=== PATIENT | male | born 1965 | race Caucasian/White ===

== ENCOUNTER 2018-01-27 10:04 | Inpatient (IN) | payer MEDICAID ==
[~2018-01-27] VITALS: Ht 177.8 cm; Wt 80.0 kg
[2018-01-27] MEDS ORDERED: normal saline 1000ML IV soln IVB ONE ×2 (10:25→13:05)
[2018-01-27] MEDS ORDERED: ondansetron/PF 4mg/2ml inj IV ONE (10:25)
[2018-01-27] MEDS ORDERED: LORazepam 2 mg/ml vial IV ONE ×2 (10:25→17:20)
[2018-01-27 11:15] LABS: BASOPHILS % (AUTO) 0.5 % (0-1); EOSINOPHILS # (AUTO) 0.1 X10'3 (0-0.9); EOSINOPHILS % (AUTO) 0.7 % (0-6); HEMATOCRIT 41.6 % (42.0-52.0); HEMOGLOBIN 13.9 g/dl (14.0-17.9); LYMPHOCYTES # (AUTO) 1.4 X10'3 (1.1-4.8); LYMPHOCYTES % (AUTO) 18.4 % (21-51); MEAN CORPUSCULAR HEMOGLOBIN 31.6 PG (27.0-31.0); MEAN CORPUSCULAR HGB CONC 33.4 % (33.0-36.5); MEAN CORPUSCULAR VOLUME 94.6 FL (78-98); MEAN PLATELET VOLUME 7.6 FL (7.4-10.4); MONOCYTES # (AUTO) 0.5 X10'3 (0-0.9); MONOCYTES % (AUTO) 5.8 % (2-12); NEUTROPHILS # (AUTO) 5.8 X10'3 (1.8-7.7); NEUTROPHILS % (AUTO) 74.6 % (42-75); PLATELET COUNT 353 X10'3 (140-440); RED BLOOD COUNT 4.39 X10'6 (4.70-6.10); RED CELL DISTRIBUTION WIDTH 16.4 % (11.5-14.5); WHITE BLOOD COUNT 7.8 X10'3 (4.5-11.0)
[2018-01-27 11:25] LABS: ALANINE AMINOTRANSFERASE 32 U/L (12-78); ALBUMIN 3.1 G/DL (3.4-5.0); ALBUMIN/GLOBULIN RATIO 0.8 (1.1-1.5); ALKALINE PHOSPHATASE 193 IU/L (46-116); ANION GAP 23 (8-16); ASPARTATE AMINO TRANSFERASE 47 U/L (10-37); BILIRUBIN,TOTAL 0.7 MG/DL (0.1-1.0); BLOOD UREA NITROGEN 10 MG/DL (7-18); BUN/CREATININE RATIO 10.1 (5.4-32.0); CALCIUM 9.6 MG/DL (8.5-10.1); CHLORIDE 95 MMOL/L (99-107); CREATININE 0.99 MG/DL (0.60-1.10); GLUCOSE 88 MG/DL (70-104); POTASSIUM 3.4 MMOL/L (3.5-5.1); SODIUM 137 MMOL/L (135-145); TOTAL CARBON DIOXIDE 19.2 MMOL/L (24-32); TOTAL PROTEIN 7.1 G/DL (6.4-8.2); eGFR 80 ML/MIN
[2018-01-27 11:34] LABS: ACETAMINOPHEN < 2.0 UG/ML (10-30); ETHANOL 0.222 GM/DL (0.0-0.010)
[2018-01-27] MEDS ORDERED: proCHLORperazine 10 MG/2 ml inj IV ONE (11:50)
[2018-01-27] MEDS ORDERED: pantoprazole 40 MG vial IV ONE (13:05)
[2018-01-27] MEDS ORDERED: LIDOcaine Viscous 15ml cup MM ONE (13:05)
[2018-01-27] MEDS ORDERED: sucralfate 1gm/10ml UD suspension PO ONE (13:05)
[2018-01-27] MEDS ORDERED: mag hydrox/Alum hydrox/simeth 30ml oral suspension PO ONE (13:05)
[2018-01-27] MEDS ORDERED: PANT-47 PO ×2 (14:26→23:50)
[2018-01-27] MEDS: gabapentin 300mg capsule PO SCH ×3 (14:36→21:34)
[2018-01-27] MEDS ORDERED: normal saline 1000ml 1,000 ML IV ONE (15:40)
[2018-01-27 15:57] LABS: CLARITY,URINE CLEAR (Clear); COLOR,URINE YELLOW (Yellow); GLUCOSE, URINE NEGATIVE (Neg); KETONES,URINE >=80 mg/dl (Neg); LEUKOCYTE ESTERASE ,URINE NEGATIVE (Neg); NITRITES, URINE NEGATIVE (Neg); OCCULT BLOOD,URINE TRACE-INTACT (Neg); PH,URINE 5.5 (4.8-8.0); PROTEIN,URINE TRACE mg/dl (Neg); UROBILINOGEN,URINE 0.2 E.U/dL (0.2-1.0)
[2018-01-27 15:58] LABS: UA COLLECTION TYPE CLN CATCH MIDSTREAM
[2018-01-27 16:03] LABS: MUCUS STRANDS MANY /LPF (Neg); SQUAMOUS EPITHELIAL CELL,UR FEW /LPF (FEW)
[2018-01-27 16:05] LABS: BACTERIA,URINE NONE SEEN /HPF (Neg); RBC,URINE 0-2 /HPF (0-2); TRANSITIONAL EPI CELLS,URINE FEW /HPF; WBC,URINE 0-4 /HPF (0-4)
[2018-01-27 16:12] LABS: URINE AMPHETAMINE SCREEN NEGATIVE (Neg); URINE BARBITUATE SCREEN NEGATIVE (Neg); URINE BENZODIAZEPINES SCREEN NEGATIVE (Neg); URINE CANNABINOID SCREEN POSITIVE (Neg); URINE COCAINE SCREEN NEGATIVE (Neg); URINE METHADONE SCREEN NEGATIVE (Neg); URINE OPIATE SCREEN NEGATIVE (Neg); URINE PHENCYCLIDINE SCREEN NEGATIVE (Neg)
[2018-01-27] MEDS: thiamine 100mg tablet PO SCH (19:18)
[2018-01-27] MEDS: LORazepam 1 MG tablet PO PRN ×2 (19:18→21:34)
[2018-01-28] MEDS: pantoprazole 40mg Tablet.DR PO SCH (09:39)
[2018-01-28] MEDS: gabapentin 300mg capsule PO SCH ×4 (09:39→20:42)
[2018-01-28] MEDS: thiamine 100mg tablet PO SCH (09:39)
[2018-01-28] MEDS: multivitamins, therapeutics tablet PO SCH (09:39)
[2018-01-28] MEDS: LORazepam 1 MG tablet PO PRN ×5 (09:39→22:42)
[2018-01-28] MEDS ORDERED: acetaminophen 325mg tablet PO ONE (21:40)
[2018-01-29] MEDS ORDERED: dextrose 50%-water 50ml dispensing syringe IV PRN
[2018-01-29] MEDS ORDERED: thiamine 100mg/ml 2ml inj. IV ONE
[2018-01-29] MEDS: LORazepam 2 mg/ml vial IV PRN ×13 (00:22→23:08)
[2018-01-29 02:19] LABS: BASOPHILS % (AUTO) 0.4 % (0-1); EOSINOPHILS # (AUTO) 0.1 X10'3 (0-0.9); EOSINOPHILS % (AUTO) 1.2 % (0-6); HEMATOCRIT 38.3 % (42.0-52.0); HEMOGLOBIN 12.9 g/dl (14.0-17.9); LYMPHOCYTES # (AUTO) 1.2 X10'3 (1.1-4.8); LYMPHOCYTES % (AUTO) 19.5 % (21-51); MEAN CORPUSCULAR HEMOGLOBIN 31.9 PG (27.0-31.0); MEAN CORPUSCULAR HGB CONC 33.5 % (33.0-36.5); MEAN CORPUSCULAR VOLUME 95.2 FL (78-98); MEAN PLATELET VOLUME 7.9 FL (7.4-10.4); MONOCYTES # (AUTO) 0.3 X10'3 (0-0.9); MONOCYTES % (AUTO) 5.3 % (2-12); NEUTROPHILS # (AUTO) 4.6 X10'3 (1.8-7.7); NEUTROPHILS % (AUTO) 73.6 % (42-75); PLATELET COUNT 197 X10'3 (140-440); RED BLOOD COUNT 4.03 X10'6 (4.70-6.10); RED CELL DISTRIBUTION WIDTH 15.8 % (11.5-14.5); WHITE BLOOD COUNT 6.3 X10'3 (4.5-11.0)
[2018-01-29 02:23] LABS: ALANINE AMINOTRANSFERASE 27 U/L (12-78); ALBUMIN 2.8 G/DL (3.4-5.0); ALBUMIN/GLOBULIN RATIO 0.7 (1.1-1.5); ALKALINE PHOSPHATASE 140 IU/L (46-116); ANION GAP 9 (8-16); ASPARTATE AMINO TRANSFERASE 36 U/L (10-37); BILIRUBIN,TOTAL 0.6 MG/DL (0.1-1.0); BLOOD UREA NITROGEN 11 MG/DL (7-18); BUN/CREATININE RATIO 11.8 (5.4-32.0); CALCIUM 8.7 MG/DL (8.5-10.1); CHLORIDE 102 MMOL/L (99-107); CREATININE 0.93 MG/DL (0.60-1.10); GLUCOSE 138 MG/DL (70-104); POTASSIUM 3.5 MMOL/L (3.5-5.1); SODIUM 137 MMOL/L (135-145); TOTAL CARBON DIOXIDE 26.3 MMOL/L (24-32); TOTAL PROTEIN 6.6 G/DL (6.4-8.2); eGFR 86 ML/MIN
[2018-01-29] MEDS ORDERED: potassium Cl 20 mEq SR tablet PO STA (02:25)
[2018-01-29] MEDS ORDERED: potassium Cl 40MEQ/NS 500ml 500 ML IV PRN ×2 (02:30)
[2018-01-29] MEDS ORDERED: haloperidol 5mg tablet PO PRN (02:30)
[2018-01-29] MEDS ORDERED: ondansetron/PF 4mg/2ml inj IV PRN (02:30)
[2018-01-29] MEDS ORDERED: acetaminophen 325mg tablet PO PRN (02:30)
[2018-01-29] MEDS ORDERED: LORazepam 2 mg/ml vial IV PRN ×3 (02:30→04:50)
[2018-01-29] MEDS ORDERED: haloperidol lactate 5mg/ml inj IM PRN ×2 (02:30)
[2018-01-29] MEDS ORDERED: magnesium hydroxide 30ml (MOM) UD suspension PO PRN (02:30)
[2018-01-29] MEDS ORDERED: potassium Cl 20 mEq SR tablet PO PRN ×2 (02:30)
[2018-01-29 02:51] LABS: BILIRUBIN,DIRECT 0.2 MG/DL (0-0.3); MAGNESIUM 1.6 MG/DL (1.5-2.4)
[2018-01-29] MEDS ORDERED: phenobarbital inj 260 MG in normal saline 100ml IV soln 98 ML IV STA (03:05)
[2018-01-29] MEDS: normal saline 1000ml 1,000 ML IV SCH ×3 (03:19→21:35)
[2018-01-29 03:27] LABS: HIV ANTIBODY 1&2 RAPID NON-REACTIVE (Neg)
[2018-01-29] MEDS ORDERED: phenobarbital inj 130 MG in normal saline 100ml IV soln 99 ML IV ONE ×2 (06:45→23:20)
[2018-01-29] MEDS: pantoprazole 40mg Tablet.DR PO SCH ×2 (07:30→08:25)
[2018-01-29] MEDS: multivitamins, therapeutics tablet PO SCH ×2 (08:00→08:24)
[2018-01-29] MEDS: thiamine 100mg tablet PO SCH ×2 (08:00→08:25)
[2018-01-29] MEDS: folic acid 1mg tablet PO SCH (08:25)
[2018-01-29] MEDS: gabapentin 300mg capsule PO SCH ×4 (08:25→21:00)
[2018-01-29] MEDS: haloperidol lactate 5mg/ml inj IM PRN ×3 (09:10→19:04)
[2018-01-29 10:07] LABS: MAGNESIUM 1.5 MG/DL (1.5-2.4); POTASSIUM 3.8 MMOL/L (3.5-5.1)
[2018-01-29] MEDS: cloNIDine 0.1 mg tablet PO SCH ×2 (13:49→21:00)
[2018-01-29 16:20] VITALS: BP 127/82
[2018-01-29] MEDS ORDERED: LORazepam 2 mg/ml vial IV ONE ×2 (19:15→19:30)
[2018-01-29] MEDS: phenobarbital inj 260 MG in normal saline 100ml IV soln 98 ML IV SCH (21:20)
[2018-01-29 23:00] VITALS: BP 111/75
[2018-01-30] MEDS: LORazepam 2 mg/ml vial IV PRN ×19 (00:35→23:57)
[2018-01-30] MEDS: haloperidol lactate 5mg/ml inj IM PRN ×5 (00:38→23:59)
[2018-01-30 03:00] VITALS: BP 113/78
[2018-01-30 05:38] LABS: BASOPHILS % (AUTO) 0.3 % (0-1); EOSINOPHILS # (AUTO) 0.2 X10'3 (0-0.9); EOSINOPHILS % (AUTO) 4.2 % (0-6); HEMATOCRIT 36.3 % (42.0-52.0); HEMOGLOBIN 12.3 g/dl (14.0-17.9); LYMPHOCYTES # (AUTO) 1.1 X10'3 (1.1-4.8); LYMPHOCYTES % (AUTO) 18.8 % (21-51); MEAN CORPUSCULAR HEMOGLOBIN 32.2 PG (27.0-31.0); MEAN CORPUSCULAR HGB CONC 33.8 % (33.0-36.5); MEAN CORPUSCULAR VOLUME 95.5 FL (78-98); MEAN PLATELET VOLUME 8.6 FL (7.4-10.4); MONOCYTES # (AUTO) 0.4 X10'3 (0-0.9); MONOCYTES % (AUTO) 7.6 % (2-12); NEUTROPHILS % (AUTO) 69.1 % (42-75); PLATELET COUNT 149 X10'3 (140-440); RED BLOOD COUNT 3.81 X10'6 (4.70-6.10); RED CELL DISTRIBUTION WIDTH 15.7 % (11.5-14.5); WHITE BLOOD COUNT 5.8 X10'3 (4.5-11.0)
[2018-01-30 05:56] LABS: ALBUMIN 2.6 G/DL (3.4-5.0); ANION GAP 8 (8-16); BLOOD UREA NITROGEN 5 MG/DL (7-18); BUN/CREATININE RATIO 7.4 (5.4-32.0); CALCIUM 8.6 MG/DL (8.5-10.1); CHLORIDE 102 MMOL/L (99-107); CREATININE 0.68 MG/DL (0.60-1.10); GLUCOSE 100 MG/DL (70-104); MAGNESIUM 1.6 MG/DL (1.5-2.4); PHOSPHORUS 1.8 MG/DL (2.3-4.5); POTASSIUM 3.9 MMOL/L (3.5-5.1); SODIUM 135 MMOL/L (135-145); TOTAL CARBON DIOXIDE 24.8 MMOL/L (24-32); eGFR > 90 ML/MIN
[2018-01-30] MEDS: phenobarbital inj 260 MG in normal saline 100ml IV soln 98 ML IV SCH ×2 (07:48→21:21)
[2018-01-30] MEDS: multivitamins, therapeutics tablet PO SCH (08:00)
[2018-01-30] MEDS: gabapentin 300mg capsule PO SCH ×4 (08:00→20:14)
[2018-01-30] MEDS: cloNIDine 0.1 mg tablet PO SCH ×3 (08:00→20:14)
[2018-01-30] MEDS: pantoprazole 40mg Tablet.DR PO SCH (08:00)
[2018-01-30] MEDS: thiamine 100mg tablet PO SCH (08:00)
[2018-01-30] MEDS: folic acid 1mg tablet PO SCH (08:00)
[2018-01-30] MEDS ORDERED: phenobarbital inj 260 MG in normal saline 100ml IV soln 98 ML IV SCH (08:00)
[2018-01-30] MEDS: normal saline 1000ml 1,000 ML IV SCH ×3 (08:26→20:02)
[2018-01-30 08:45] VITALS: BP 140/67
[2018-01-30 11:00] VITALS: BP 134/79
[2018-01-30 15:00] VITALS: BP 129/82
[2018-01-30 18:00] VITALS: BP 120/79
[2018-01-30 22:00] VITALS: BP 125/72
[2018-01-31] MEDS: LORazepam 2 mg/ml vial IV PRN ×4 (00:13→20:00)
[2018-01-31] MEDS ORDERED: LORazepam 1 MG tablet PO PRN (02:30)
[2018-01-31] MEDS ORDERED: LORazepam 2 mg/ml vial IV PRN (02:30)
[2018-01-31] MEDS: normal saline 1000ml 1,000 ML IV SCH (04:18)
[2018-01-31 05:16] LABS: BASOPHILS % (AUTO) 0.2 % (0-1); EOSINOPHILS # (AUTO) 0.3 X10'3 (0-0.9); EOSINOPHILS % (AUTO) 3.8 % (0-6); HEMATOCRIT 37.9 % (42.0-52.0); HEMOGLOBIN 12.9 g/dl (14.0-17.9); LYMPHOCYTES # (AUTO) 0.9 X10'3 (1.1-4.8); LYMPHOCYTES % (AUTO) 13.1 % (21-51); MEAN CORPUSCULAR HEMOGLOBIN 32.8 PG (27.0-31.0); MEAN CORPUSCULAR HGB CONC 34.2 % (33.0-36.5); MEAN PLATELET VOLUME 8.2 FL (7.4-10.4); MONOCYTES # (AUTO) 0.6 X10'3 (0-0.9); MONOCYTES % (AUTO) 8.9 % (2-12); PLATELET COUNT 210 X10'3 (140-440); RED BLOOD COUNT 3.95 X10'6 (4.70-6.10); RED CELL DISTRIBUTION WIDTH 15.4 % (11.5-14.5); WHITE BLOOD COUNT 6.8 X10'3 (4.5-11.0)
[2018-01-31 05:24] LABS: ALBUMIN 2.6 G/DL (3.4-5.0); ANION GAP 10 (8-16); BLOOD UREA NITROGEN 7 MG/DL (7-18); BUN/CREATININE RATIO 10.3 (5.4-32.0); CALCIUM 8.5 MG/DL (8.5-10.1); CHLORIDE 100 MMOL/L (99-107); CREATININE 0.68 MG/DL (0.60-1.10); GLUCOSE 89 MG/DL (70-104); MAGNESIUM 1.6 MG/DL (1.5-2.4); PHOSPHORUS 3.4 MG/DL (2.3-4.5); POTASSIUM 3.7 MMOL/L (3.5-5.1); SODIUM 135 MMOL/L (135-145); TOTAL CARBON DIOXIDE 25.1 MMOL/L (24-32); eGFR > 90 ML/MIN
[2018-01-31 06:00] VITALS: BP 129/78
[2018-01-31] MEDS: cloNIDine 0.1 mg tablet PO SCH ×3 (08:00→20:15)
[2018-01-31] MEDS: pantoprazole 40mg Tablet.DR PO SCH (08:00)
[2018-01-31] MEDS: thiamine 100mg tablet PO SCH (08:00)
[2018-01-31] MEDS: gabapentin 300mg capsule PO SCH (08:00)
[2018-01-31] MEDS: multivitamins, therapeutics tablet PO SCH (08:00)
[2018-01-31] MEDS: folic acid 1mg tablet PO SCH (08:00)
[2018-01-31] MEDS: phenobarbital inj 260 MG in normal saline 100ml IV soln 98 ML IV SCH (08:27)
[2018-01-31] MEDS: haloperidol lactate 5mg/ml inj IM PRN (08:38)
[2018-01-31 11:00] VITALS: BP 126/77
[2018-01-31] MEDS: dextrose 5%-1/2 normal saline 1,000 ML IV SCH ×2 (14:45→23:56)
[2018-01-31 15:00] VITALS: BP 132/78
[2018-01-31 18:00] VITALS: BP 166/84
[2018-01-31 23:30] VITALS: BP 125/75
[2018-02-01] MEDS: LORazepam 2 mg/ml vial IV PRN ×4 (00:05→23:48)
[2018-02-01 02:00] VITALS: BP 137/81
[2018-02-01 05:07] LABS: BASOPHILS % (AUTO) 0.5 % (0-1); EOSINOPHILS # (AUTO) 0.3 X10'3 (0-0.9); EOSINOPHILS % (AUTO) 4.9 % (0-6); HEMATOCRIT 37.5 % (42.0-52.0); HEMOGLOBIN 12.7 g/dl (14.0-17.9); LYMPHOCYTES # (AUTO) 1.1 X10'3 (1.1-4.8); LYMPHOCYTES % (AUTO) 18.9 % (21-51); MEAN CORPUSCULAR HEMOGLOBIN 32.4 PG (27.0-31.0); MEAN CORPUSCULAR HGB CONC 33.9 % (33.0-36.5); MEAN CORPUSCULAR VOLUME 95.8 FL (78-98); MEAN PLATELET VOLUME 7.9 FL (7.4-10.4); MONOCYTES # (AUTO) 0.6 X10'3 (0-0.9); MONOCYTES % (AUTO) 10.5 % (2-12); NEUTROPHILS # (AUTO) 3.7 X10'3 (1.8-7.7); NEUTROPHILS % (AUTO) 65.2 % (42-75); PLATELET COUNT 269 X10'3 (140-440); RED BLOOD COUNT 3.92 X10'6 (4.70-6.10); RED CELL DISTRIBUTION WIDTH 15.8 % (11.5-14.5); WHITE BLOOD COUNT 5.7 X10'3 (4.5-11.0)
[2018-02-01 05:33] LABS: ALBUMIN 2.3 G/DL (3.4-5.0); ANION GAP 11 (8-16); BLOOD UREA NITROGEN 8 MG/DL (7-18); BUN/CREATININE RATIO 11.4 (5.4-32.0); CALCIUM 8.5 MG/DL (8.5-10.1); CHLORIDE 101 MMOL/L (99-107); GLUCOSE 99 MG/DL (70-104); MAGNESIUM 1.7 MG/DL (1.5-2.4); PHOSPHORUS 3.5 MG/DL (2.3-4.5); POTASSIUM 3.3 MMOL/L (3.5-5.1); SODIUM 137 MMOL/L (135-145); TOTAL CARBON DIOXIDE 25.3 MMOL/L (24-32); eGFR > 90 ML/MIN
[2018-02-01 06:00] VITALS: BP 116/76
[2018-02-01] MEDS: cloNIDine 0.1 mg tablet PO SCH ×3 (08:00→20:38)
[2018-02-01] MEDS: pantoprazole 40mg Tablet.DR PO SCH (08:00)
[2018-02-01] MEDS: thiamine inj. 100 MG, magnesium sulf injection 2 GM, MVI, adult No.4 with vit. K 10 ML ... IV SCH ×4 (09:46)
[2018-02-01 11:00] VITALS: BP 116/76
[2018-02-01] MEDS ORDERED: potassium Cl 20 mEq SR tablet PO PRN ×2 (11:10)
[2018-02-01] MEDS ORDERED: potassium Cl 40MEQ/NS 500ml 500 ML IV PRN ×2 (11:10)
[2018-02-01 15:00] VITALS: BP 117/76
[2018-02-01] MEDS: acetaminophen 325mg tablet PO PRN (16:28)
[2018-02-01 18:00] VITALS: BP 107/64
[2018-02-01] MEDS: dextrose 5%-1/2 normal saline 1,000 ML IV SCH (19:45)
[2018-02-01 22:00] VITALS: BP 120/88
[2018-02-02] MEDS ORDERED: haloperidol lactate 5mg/ml inj IM PRN (00:40)
[2018-02-02] MEDS ORDERED: LORazepam 2 mg/ml vial IV PRN ×3 (00:40→02:30)
[2018-02-02 02:00] VITALS: BP 126/73
[2018-02-02] MEDS ORDERED: LORazepam 1 MG tablet PO PRN (02:30)
[2018-02-02 05:04] LABS: BASOPHILS # (AUTO) 0.1 X10'3 (0-0.2); BASOPHILS % (AUTO) 1.1 % (0-1); EOSINOPHILS # (AUTO) 0.3 X10'3 (0-0.9); EOSINOPHILS % (AUTO) 4.6 % (0-6); HEMATOCRIT 37.2 % (42.0-52.0); HEMOGLOBIN 12.5 g/dl (14.0-17.9); LYMPHOCYTES # (AUTO) 1.4 X10'3 (1.1-4.8); LYMPHOCYTES % (AUTO) 23.1 % (21-51); MEAN CORPUSCULAR HEMOGLOBIN 32.2 PG (27.0-31.0); MEAN CORPUSCULAR HGB CONC 33.5 % (33.0-36.5); MEAN CORPUSCULAR VOLUME 96.2 FL (78-98); MONOCYTES # (AUTO) 0.7 X10'3 (0-0.9); MONOCYTES % (AUTO) 11.4 % (2-12); NEUTROPHILS # (AUTO) 3.8 X10'3 (1.8-7.7); NEUTROPHILS % (AUTO) 59.8 % (42-75); PLATELET COUNT 336 X10'3 (140-440); RED BLOOD COUNT 3.87 X10'6 (4.70-6.10); RED CELL DISTRIBUTION WIDTH 15.8 % (11.5-14.5); WHITE BLOOD COUNT 6.3 X10'3 (4.5-11.0)
[2018-02-02 05:44] LABS: ALBUMIN 2.5 G/DL (3.4-5.0); ANION GAP 9 (8-16); BLOOD UREA NITROGEN 8 MG/DL (7-18); BUN/CREATININE RATIO 12.7 (5.4-32.0); CALCIUM 8.8 MG/DL (8.5-10.1); CHLORIDE 104 MMOL/L (99-107); CREATININE 0.63 MG/DL (0.60-1.10); GLUCOSE 102 MG/DL (70-104); MAGNESIUM 2.1 MG/DL (1.5-2.4); POTASSIUM 3.8 MMOL/L (3.5-5.1); SODIUM 136 MMOL/L (135-145); TOTAL CARBON DIOXIDE 23.4 MMOL/L (24-32); eGFR > 90 ML/MIN
[2018-02-02] MEDS: thiamine inj. 100 MG, magnesium sulf injection 2 GM, MVI, adult No.4 with vit. K 10 ML ... IV SCH ×4 (08:45)
[2018-02-02] MEDS: pantoprazole 40mg Tablet.DR PO SCH (08:45)
[2018-02-02] MEDS: cloNIDine 0.1 mg tablet PO SCH ×4 (08:46→21:53)
[2018-02-02] MEDS: LORazepam 2 mg/ml vial IV PRN ×3 (09:06→21:52)
[2018-02-02 11:00] VITALS: BP 115/70
[2018-02-02 15:00] VITALS: BP 112/79
[2018-02-02] MEDS: mag hydrox/Alum hydrox/simeth 30ml oral suspension PO PRN (16:29)
[2018-02-02] MEDS: dextrose 5%-1/2 normal saline 1,000 ML IV SCH (17:41)
[2018-02-02 18:15] VITALS: BP 112/80
[2018-02-02 23:00] VITALS: BP 108/69
[2018-02-03 02:00] VITALS: BP 120/72
[2018-02-03 05:50] LABS: BASOPHILS % (AUTO) 0.7 % (0-1); EOSINOPHILS # (AUTO) 0.3 X10'3 (0-0.9); EOSINOPHILS % (AUTO) 5.8 % (0-6); HEMATOCRIT 36.8 % (42.0-52.0); HEMOGLOBIN 12.1 g/dl (14.0-17.9); LYMPHOCYTES # (AUTO) 1.8 X10'3 (1.1-4.8); LYMPHOCYTES % (AUTO) 32.4 % (21-51); MEAN CORPUSCULAR VOLUME 96.7 FL (78-98); MEAN PLATELET VOLUME 8.1 FL (7.4-10.4); MONOCYTES # (AUTO) 0.9 X10'3 (0-0.9); MONOCYTES % (AUTO) 15.3 % (2-12); NEUTROPHILS # (AUTO) 2.6 X10'3 (1.8-7.7); NEUTROPHILS % (AUTO) 45.8 % (42-75); PLATELET COUNT 419 X10'3 (140-440); RED CELL DISTRIBUTION WIDTH 15.7 % (11.5-14.5); WHITE BLOOD COUNT 5.7 X10'3 (4.5-11.0)
[2018-02-03 06:00] VITALS: BP 105/68
[2018-02-03 06:09] LABS: ALBUMIN 2.4 G/DL (3.4-5.0); ANION GAP 8 (8-16); BLOOD UREA NITROGEN 7 MG/DL (7-18); BUN/CREATININE RATIO 9.7 (5.4-32.0); CALCIUM 8.4 MG/DL (8.5-10.1); CHLORIDE 104 MMOL/L (99-107); CREATININE 0.72 MG/DL (0.60-1.10); GLUCOSE 98 MG/DL (70-104); PHOSPHORUS 3.7 MG/DL (2.3-4.5); POTASSIUM 3.7 MMOL/L (3.5-5.1); SODIUM 138 MMOL/L (135-145); TOTAL CARBON DIOXIDE 25.9 MMOL/L (24-32); eGFR > 90 ML/MIN
[2018-02-03] MEDS: pantoprazole 40mg Tablet.DR PO SCH (08:27)
[2018-02-03] MEDS: mag hydrox/Alum hydrox/simeth 30ml oral suspension PO PRN ×2 (08:27→15:52)
[2018-02-03] MEDS: cloNIDine 0.1 mg tablet PO SCH ×3 (08:27→20:32)
[2018-02-03] MEDS: thiamine inj. 100 MG, magnesium sulf injection 2 GM, MVI, adult No.4 with vit. K 10 ML ... IV SCH ×4 (08:27)
[2018-02-03] MEDS: LORazepam 2 mg/ml vial IV PRN (08:29)
[2018-02-03 11:00] VITALS: BP 110/68
[2018-02-03] MEDS: LORazepam 1 MG tablet PO PRN (12:53)
[2018-02-03] MEDS: dextrose 5%-1/2 normal saline 1,000 ML IV SCH (13:43)
[2018-02-03 15:00] VITALS: BP 108/66
[2018-02-03 19:00] VITALS: BP 115/58
[2018-02-03 22:53] VITALS: BP 119/72
[2018-02-04 02:56] VITALS: BP 114/71
[2018-02-04 05:08] LABS: BASOPHILS # (AUTO) 0.2 X10'3 (0-0.2); BASOPHILS % (AUTO) 2.3 % (0-1); EOSINOPHILS # (AUTO) 0.3 X10'3 (0-0.9); EOSINOPHILS % (AUTO) 5.1 % (0-6); HEMATOCRIT 36.3 % (42.0-52.0); HEMOGLOBIN 12.2 g/dl (14.0-17.9); LYMPHOCYTES # (AUTO) 2.5 X10'3 (1.1-4.8); MEAN CORPUSCULAR HEMOGLOBIN 32.3 PG (27.0-31.0); MEAN CORPUSCULAR HGB CONC 33.5 % (33.0-36.5); MEAN CORPUSCULAR VOLUME 96.6 FL (78-98); MEAN PLATELET VOLUME 8.4 FL (7.4-10.4); MONOCYTES # (AUTO) 0.9 X10'3 (0-0.9); MONOCYTES % (AUTO) 13.6 % (2-12); NEUTROPHILS # (AUTO) 2.8 X10'3 (1.8-7.7); PLATELET COUNT 437 X10'3 (140-440); RED BLOOD COUNT 3.76 X10'6 (4.70-6.10); RED CELL DISTRIBUTION WIDTH 15.9 % (11.5-14.5); WHITE BLOOD COUNT 6.6 X10'3 (4.5-11.0)
[2018-02-04 05:13] LABS: ALANINE AMINOTRANSFERASE 29 U/L (12-78); ALBUMIN 2.4 G/DL (3.4-5.0); ALBUMIN/GLOBULIN RATIO 0.6 (1.1-1.5); ALKALINE PHOSPHATASE 88 IU/L (46-116); ANION GAP 5 (8-16); ASPARTATE AMINO TRANSFERASE 20 U/L (10-37); BILIRUBIN,TOTAL 0.2 MG/DL (0.1-1.0); BLOOD UREA NITROGEN 10 MG/DL (7-18); BUN/CREATININE RATIO 11.8 (5.4-32.0); CALCIUM 8.5 MG/DL (8.5-10.1); CHLORIDE 104 MMOL/L (99-107); CREATININE 0.85 MG/DL (0.60-1.10); GLUCOSE 102 MG/DL (70-104); POTASSIUM 4.3 MMOL/L (3.5-5.1); SODIUM 137 MMOL/L (135-145); TOTAL CARBON DIOXIDE 27.8 MMOL/L (24-32); TOTAL PROTEIN 6.2 G/DL (6.4-8.2); eGFR > 90 ML/MIN
[2018-02-04] MEDS: LORazepam 1 MG tablet PO PRN ×3 (05:50→20:02)
[2018-02-04 07:00] VITALS: BP 116/74
[2018-02-04] MEDS: pantoprazole 40mg Tablet.DR PO SCH (07:52)
[2018-02-04] MEDS: dextrose 5%-1/2 normal saline 1,000 ML IV SCH (07:52)
[2018-02-04] MEDS: cloNIDine 0.1 mg tablet PO SCH ×3 (07:52→20:01)
[2018-02-04] MEDS: multivitamins, therapeutics tablet PO SCH (07:52)
[2018-02-04] MEDS: thiamine 100mg tablet PO SCH (07:52)
[2018-02-04 11:00] VITALS: BP 90/51
[2018-02-04 15:00] VITALS: BP 119/69
[2018-02-04 19:00] VITALS: BP 109/77
[2018-02-04] MEDS: acetaminophen 325mg tablet PO PRN (20:07)
[2018-02-04 22:42] VITALS: BP 112/68
[2018-02-05 03:00] VITALS: BP 108/74
[2018-02-05] MEDS: LORazepam 1 MG tablet PO PRN ×3 (06:51→20:36)
[2018-02-05 07:00] VITALS: BP 132/81
[2018-02-05] MEDS: cloNIDine 0.1 mg tablet PO SCH ×3 (07:50→20:36)
[2018-02-05] MEDS: multivitamins, therapeutics tablet PO SCH (07:50)
[2018-02-05] MEDS: pantoprazole 40mg Tablet.DR PO SCH (07:50)
[2018-02-05] MEDS: thiamine 100mg tablet PO SCH (07:50)
[2018-02-05 11:00] VITALS: BP 103/68
[2018-02-05] MEDS: dextrose 5%-1/2 normal saline 1,000 ML IV SCH (11:32)
[2018-02-05 13:46] LABS: CLARITY,URINE CLEAR (Clear); COLOR,URINE YELLOW (Yellow); GLUCOSE, URINE NEGATIVE (Neg); KETONES,URINE NEGATIVE (Neg); LEUKOCYTE ESTERASE ,URINE NEGATIVE (Neg); NITRITES, URINE NEGATIVE (Neg); OCCULT BLOOD,URINE NEGATIVE (Neg); PH,URINE 6.5 (4.8-8.0); PROTEIN,URINE NEGATIVE (Neg); UROBILINOGEN,URINE 0.2 E.U/dL (0.2-1.0)
[2018-02-05 13:57] LABS: UA COLLECTION TYPE CLN CATCH MIDSTREAM
[2018-02-05] MEDS: acetaminophen 325mg tablet PO PRN (14:39)
[2018-02-05 15:00] VITALS: BP 108/63
[2018-02-05 19:00] VITALS: BP 115/71
[2018-02-05] MEDS: mag hydrox/Alum hydrox/simeth 30ml oral suspension PO PRN (21:02)
[2018-02-05 23:00] VITALS: BP 106/63
[2018-02-06 03:00] VITALS: BP 115/68
[2018-02-06] MEDS: pantoprazole 40mg Tablet.DR PO SCH (07:43)
[2018-02-06] MEDS: cloNIDine 0.1 mg tablet PO SCH (07:43)
[2018-02-06] MEDS: multivitamins, therapeutics tablet PO SCH (07:43)
[2018-02-06] MEDS: LORazepam 1 MG tablet PO PRN (07:43)
[2018-02-06] MEDS: thiamine 100mg tablet PO SCH (07:43)
[2018-02-06] MEDS: acetaminophen 325mg tablet PO PRN (07:51)
[2018-02-06] MEDS: dextrose 5%-1/2 normal saline 1,000 ML IV SCH (07:51)
[2018-02-06 11:00] VITALS: BP 113/61
[2018-02-06] MEDS ORDERED: MULT-1179 PO (11:24)
[2018-02-06] MEDS ORDERED: THI100T PO (11:24)
[2018-02-06] MEDS ORDERED: CLON0.1T20 PO (11:24)
[2018-02-06] MEDS ORDERED: FOLI1TAB16 PO (11:28)
[2018-02-06] MEDS ORDERED: CYAN100097 PO (11:28)
[2018-02-06] MEDS ORDERED: LORA2TAB96 PO (13:51)
== END 2018-02-06 13:04 | DRG 241 ==
LOC: ER 10:05 → ED HOLD 01-29 02:26 → EDBEDREQ 01-29 13:29 → PCU 3S 01-29 16:06
PROVIDERS: ADMIT Internal Medicine; ATTEND Family Medicine
DX: K29.20 Alcoholic gastritis without bleeding (principal); F10.231 Alcohol dependence with withdrawal delirium; E44.0 Moderate protein-calorie malnutrition; R45.851 Suicidal ideations; F32.2 Major depressive disorder, single episode, severe without psychotic features; E83.39 Other disorders of phosphorus metabolism; D64.9 Anemia, unspecified; Z60.2 Problems related to living alone; E87.6 Hypokalemia; F41.9 Anxiety disorder, unspecified; G89.29 Other chronic pain; K21.9 Gastro-esophageal reflux disease without esophagitis; Z59.0 Homelessness; Z79.899 Other long term (current) drug therapy; Z68.25 Body mass index [BMI] 25.0-25.9, adult; Z71.41 Alcohol abuse counseling and surveillance of alcoholic
CPT/HCPCS: 36415; 74176; 80048; 80053; 80305; 80320; 80329; 81001; 81003; 82248; 82948; 83735; 84100; 84132; 84443; 84484; 85025; 86703; 87070; 93005; 96374; 96375; 96376; 99285; C9113; G0378; J0780; J1630; J2060; J2405; J2560; J3411; J3475; J3480; J7030; J7060

== ENCOUNTER 2018-03-10 08:43 | Emergency (ER) | payer MEDICAID ==
[~2018-03-10] VITALS: Ht 177.8 cm; Wt 88.0 kg
[~2018-03-10 08:43] MED LIST: CLON0.1T20 PO; HYDR50TA65 PO; MIRT30TA8 PO; OXCA150T14 PO; PANT-47 PO
[2018-03-10 08:44] VITALS: BP 114/62
[2018-03-10] MEDS ORDERED: SULF1TAB49 PO (08:56)
== END 2018-03-10 09:09 | disposition home or self-care (01) ==
LOC: ER 08:43
DX: L02.415 Cutaneous abscess of right lower limb (principal); M25.561 Pain in right knee; M79.651 Pain in right thigh; G89.29 Other chronic pain; Z98.890 Other specified postprocedural states; Z60.2 Problems related to living alone; Z79.899 Other long term (current) drug therapy; Z79.2 Long term (current) use of antibiotics
CPT/HCPCS: 99283

== ENCOUNTER 2018-06-19 19:58 | Emergency (ER) | payer MEDICAID ==
[~2018-06-19] VITALS: Ht 177.8 cm; Wt 93.2 kg
[~2018-06-19 19:58] MED LIST changes: +CLIN40GE TOP
[2018-06-19 20:06] VITALS: BP 115/73
[2018-06-19] MEDS ORDERED: AMOX-422 PO (20:59)
[2018-06-19] MEDS ORDERED: TETanus/Pertussis (Acell)/Diphther VAC/PF (Tdap-Adult) 0.5ml syringe IMVAC ONE (21:00)
[2018-06-19] MEDS ORDERED: amox tr/potassium clavulanate 875/125mg TAB PO ONE (21:10)
== END 2018-06-19 21:19 | disposition home or self-care (01) ==
LOC: ER 19:58
DX: S61.431A Puncture wound without foreign body of right hand, initial encounter (principal); G89.29 Other chronic pain; Z98.890 Other specified postprocedural states; Z87.891 Personal history of nicotine dependence; Z60.2 Problems related to living alone; Z79.2 Long term (current) use of antibiotics; Z79.899 Other long term (current) drug therapy; W54.0XXA Bitten by dog, initial encounter; Y93.89 Activity, other specified; Y92.89 Other specified places as the place of occurrence of the external cause; Y99.8 Other external cause status
CPT/HCPCS: 73130; 90471; 90715; 99283